=== PATIENT | male | born 1955 | race Caucasian/White ===

== ENCOUNTER 2022-06-14 11:25 | Emergency (ER) | payer MEDICAID, MEDICARE ==
[2022-06-14 12:11] VITALS: BP 115/70; PULSE 54
[2022-06-14] MEDS ORDERED: Sodium Chloride 0.9% 10 ML Syringe FLUSH PRN (12:16)
[2022-06-14] MEDS ORDERED: Ondansetron 4 MG/2 ML SDV IVPUSH ONE (12:17)
[2022-06-14] MEDS ORDERED: Sodium Chloride 0.9% 1,000 ML IV ONE (12:21)
[2022-06-14 13:10] LABS: CORONAVIRUS COVID-19 NAA NEGATIVE (NEGATIVE)
[2022-06-14 13:38] LABS: ESTIMATED GFR 83 mL/min (>60)
[2022-06-14 14:36] LABS: LYME AB IgG Negative (Negative); LYME AB IgM Positive (Negative)
== END 2022-06-14 14:16 | disposition home or self-care (01) ==
LOC: JP.ED 11:25
DX: R53.81 Other malaise (principal); R53.83 Other fatigue; E86.0 Dehydration; R11.2 Nausea with vomiting, unspecified; R53.1 Weakness; F17.210 Nicotine dependence, cigarettes, uncomplicated; Z20.822 Contact with and (suspected) exposure to COVID-19
CPT/HCPCS: 0241U; 36415; 80053; 83605; 83690; 85025; 86140; 86617; 86617-59; 86618; 93005; 93010; 96361; 96374; 99283; 99283-25; J2405; J3490; J7030